=== PATIENT | female | born 1965 | race American Indian/Alaskan Native ===

== ENCOUNTER 2017-01-28 13:46 | Outpatient (CLI) | payer BC ==
--- NOTE | 2017-01-29 11:39 | Mammography Report ---
BILATERAL DIGITAL SCREENING MAMMOGRAM with CAD: 01/28/17 13:46:00 CLINICAL: Routine screening. COMPARISON:01/15/16 FINDINGS: The breasts are heterogeneously dense, which may obscure small masses in the breasts are sufficiently dense to limit the sensitivity of mammography. Bilateral benign calcifications.. No mass, architectural distortion or suspicious calcifications. IMPRESSION: No mammographic evidence of malignancy. BI-RADS CATEGORY: 2 - - Benign RECOMMENDATION: Routine mammographic screening in one year. COMMENT: Patient follow-up letters are generated by our [employer] application.
== END 2017-01-28 13:47 | disposition home or self-care (01) ==
LOC: SPVWC 13:46
DX: Z12.31 Encounter for screening mammogram for malignant neoplasm of breast (principal)
CPT/HCPCS: 77067; G0202